=== PATIENT | female | born 1955 | race Caucasian/White ===

== ENCOUNTER → 2023-04-24 15:37 | Outpatient (REF) | payer MEDICARE, OTHER, SELFPAY ==
[2023-04-24 16:31] LABS: % Basophils 0.7 % (0-2); % Eosinophils 2.9 % (0-6); % Immature Granulocytes 0.4 % (0-0.5); % Lymphocytes 52.1 % (20.5-51.1); % Monocytes 4.8 % (1.7-9.3); % Neutrophils 39.1 % (42.2-75.2); Absolute Basophils 0.1 10^3/uL (0-0.2); Absolute Eosinophils 0.2 10^3/uL (0-0.7); Absolute Lymphocytes 3.9 10^3/uL (1.2-3.4); Absolute Monocytes 0.4 10^3/uL (0.1-0.6); Absolute Neutrophils 2.9 10^3/uL (1.4-6.5); Hemoglobin 12.9 g/dL (12.0-16.0); Mean Corp Hgb Conc. 33.1 g/dL (33.0-37.0); Mean Corpuscular Hgb 28.1 pg (27.0-31.0); Mean Platelet Volume 8.9 fL (7.4-10.4); Nucleated Red Blood Cells % 0 %; Platelet Count 276 10^3/uL (130-400); Red Blood Cell Count 4.59 10^6/uL (4.20-5.40); Red Cell Dist. Width 15.9 % (11.5-14.5); White Blood Cell Count 7.5 10^3/uL (4.8-10.8)
[2023-04-24 16:58] LABS: Blood Urea Nitrogen 33 mg/dl (7-17); Calcium 9.9 mg/dl (8.4-10.2); Carbon Dioxide 30 mmol/L (22-30); Chloride 98 mmol/L (98-107); Glucose 82 mg/dl (70-99); Potassium 4.5 mmol/L (3.5-5.1); Sodium 137 mmol/L (135-145); eGFR 49.61
== END ==
LOC: RCS 15:37
PROVIDERS: ATTENDING PHYSICIAN Orthopaedic Surgery; FAMILY PHYSICIAN Physician Assistant
DX: Z01.818 Encounter for other preprocedural examination (principal)
CPT/HCPCS: 36415; 80048; 85025; 93005

== ENCOUNTER → 2023-09-10 13:16 | Outpatient (REF) | payer MEDICARE, OTHER, SELFPAY ==
[2023-09-10 14:48] LABS: % Basophils 1.1 % (0-2); % Eosinophils 5.7 % (0-6); % Immature Granulocytes 0.2 % (0-0.5); % Lymphocytes 42.8 % (20.5-51.1); % Neutrophils 45.2 % (42.2-75.2); Absolute Basophils 0.1 10^3/uL (0-0.2); Absolute Eosinophils 0.3 10^3/uL (0-0.7); Absolute Lymphocytes 2.4 10^3/uL (1.2-3.4); Absolute Monocytes 0.3 10^3/uL (0.1-0.6); Absolute Neutrophils 2.6 10^3/uL (1.4-6.5); Hematocrit 41.3 % (37.0-47.0); Mean Corp Hgb Conc. 33.9 g/dL (33.0-37.0); Mean Corpuscular Hgb 29.1 pg (27.0-31.0); Mean Corpuscular Volume 85.9 fL (81.0-99.0); Mean Platelet Volume 9.5 fL (7.4-10.4); Nucleated Red Blood Cells % 0 %; Platelet Count 314 10^3/uL (130-400); Red Blood Cell Count 4.81 10^6/uL (4.20-5.40); Red Cell Dist. Width 15.5 % (11.5-14.5); White Blood Cell Count 5.6 10^3/uL (4.8-10.8)
[2023-09-10 15:20] LABS: ALT (SGPT) 17 U/L (0-35); AST (SGOT) 33 U/L (14-36); Albumin 4.9 g/dl (3.5-5.0); Alkaline Phosphatase 74 U/L (38-126); Blood Urea Nitrogen 30 mg/dl (7-17); Calcium 10.2 mg/dl (8.4-10.2); Carbon Dioxide 30 mmol/L (22-30); Chloride 99 mmol/L (98-107); Direct Bilirubin 0.3 mg/dl (0.0-0.4); Glucose 87 mg/dl (70-99); HDL Cholesterol 91 mg/dl; Iron 97 ug/dl (37-170); Potassium 4.5 mmol/L (3.5-5.1); Sodium 140 mmol/L (135-145); Total Bilirubin 0.7 mg/dl (0.2-1.3); Total Protein 7.7 g/dl (6.3-8.2); Triglyceride 189 mg/dl (10-149); Very Low Density Lipoprotein 37 mg/dl (0-30); eGFR 40.98
[2023-09-10 15:21] LABS: Uric Acid 7.7 mg/dl (2.5-6.2)
[2023-09-10 15:30] LABS: LDL Cholesterol, Calculated 261 mg/dl; Percent Saturation 24 % (20-50); Total Cholesterol 389 mg/dl (50-199); Total Iron Binding Capacity 398 ug/dl (265-497)
[2023-09-10 15:33] LABS: C-Reactive Protein < 5.00 mg/L (0.0-10.00)
[2023-09-10 16:01] LABS: Erythrocyte Sed Rate 20 mm/hour (0-20)
[2023-09-10 16:04] LABS: TSH Reflex To Free T4 2.33 uIU/ml (0.47-4.68)
== END ==
LOC: REG 13:16
PROVIDERS: ATTENDING PHYSICIAN Physician Assistant; REFERRING PHYSICIAN Physician Assistant Medical
DX: L29.9 Pruritus, unspecified (principal); E78.2 Mixed hyperlipidemia; R21 Rash and other nonspecific skin eruption; Z87.39 Personal history of other diseases of the musculoskeletal system and connective tissue; I10 Essential (primary) hypertension; G89.4 Chronic pain syndrome; I87.1 Compression of vein; F90.0 Attention-deficit hyperactivity disorder, predominantly inattentive type; R73.03 Prediabetes
CPT/HCPCS: 36415; 80053; 80061; 82248; 83540; 83550; 84443; 84550; 85025; 85652; 86140

== ENCOUNTER → 2023-09-18 16:45 | Outpatient (REF) | payer MEDICARE, OTHER, SELFPAY ==
[2023-09-18 17:38] LABS: Urine Albumin Trace (Neg - Trace); Urine Bilirubin 1+ (Negative); Urine Character Clear (Clear); Urine Color Yellow; Urine Glucose Negative (Negative); Urine Ketone Trace (Negative); Urine Leukocyte Trace (Negative); Urine Nitrite Negative (Negative); Urine Occult Blood Trace (Negative); Urine Urobilinogen Negative (Neg - 1+)
[2023-09-18 18:10] LABS: Urine Bacteria Few (Negative); Urine Mucus Moderate
== END ==
LOC: REG 16:45
PROVIDERS: ATTENDING PHYSICIAN Physician Assistant Medical; FAMILY PHYSICIAN Physician Assistant
DX: L29.9 Pruritus, unspecified (principal)
CPT/HCPCS: 81003; 81015

== ENCOUNTER 2024-03-30 07:38 | Inpatient (IN) | payer MEDICARE, OTHER, SELFPAY ==
[2024-03-08 11:18] LABS: Hematocrit 39.8 % (37.0-47.0); Hemoglobin 13.4 g/dL (12.0-16.0); Mean Corp Hgb Conc. 33.7 g/dL (33.0-37.0); Mean Corpuscular Hgb 30.1 pg (27.0-31.0); Mean Corpuscular Volume 89.4 fL (81.0-99.0); Mean Platelet Volume 9.2 fL (7.4-10.4); Platelet Count 281 10^3/uL (130-400); Red Blood Cell Count 4.45 10^6/uL (4.20-5.40); Red Cell Dist. Width 14.6 % (11.5-14.5); White Blood Cell Count 8.4 10^3/uL (4.8-10.8)
[2024-03-08 11:32] LABS: ALT (SGPT) 20 U/L (0-35); AST (SGOT) 38 U/L (14-36); Albumin 4.6 g/dl (3.5-5.0); Alkaline Phosphatase 53 U/L (38-126); Blood Urea Nitrogen 28 mg/dl (7-17); Calcium 9.7 mg/dl (8.4-10.2); Carbon Dioxide 33 mmol/L (22-30); Chloride 96 mmol/L (98-107); Glucose 112 mg/dl (70-99); Potassium 4.3 mmol/L (3.5-5.1); Sodium 139 mmol/L (135-145); Total Bilirubin 0.5 mg/dl (0.2-1.3); Total Protein 6.9 g/dl (6.3-8.2); eGFR 49.31
[2024-03-08 13:41] VITALS: BMI 24.3
[2024-03-08 13:54] LABS: Glycohemoglobin (HgbA1c) 5.6 % (4.0-5.6)
[2024-03-10 14:39] VITALS: BMI 24.3
--- NOTE | 2024-03-16 15:14 | W.PN.UPDATE ---
Update Note
Progress Note Update
R TKA 03/16/24
DVT ppx Xarelto-SCD
Pain management. The patient had intractable pain, prior
surgery, and has opioid tolerance. Have discussed pain management
plan. She will be placed on morphine sulfate extended release 15 mg
q.12 hours while inpatient and has been provided a prescription of
1 dose to take a.m. of surgery prior to leaving her house. We will
also include IV Decadron, Lyrica 150 mg t.i.d., as well as IV
lorazepam with oral Dilaudid for breakthrough pain.
PMH:
1. Osteoarthritis status post left total knee 2020, right total
shoulder 2013, left total shoulder 2016.
2. Hypertension.
3. Chronic pain.
4. PVCs.
5. May-Thurner syndrome, left lower extremity DVT 1998 s/p left
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
thrombectomy, IVC filter, and stenting.
6. CKD 3.
7. Gastroesophageal reflux disease.
8. Chronic constipation.
9. Peripheral neuropathy.
10. Meningioma status post craniotomy.
11. ADHD.
12. Depression.
13. Remote tobacco abuse.
--- NOTE | 2024-03-16 15:39 | W.DS.TRANS ---
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
-
Discharge Instructions:
Sleep Apnea Risk Low
Discharge Diagnosis/Procedures R TKA 03/16/24
Diet As tolerated
Activity With Walker
Driving Restrictions No driving
Bathing Restrictions OK to Shower
Instructions:
Stand-Alone Forms: SDS Total Hip and Knee D/C
Changes to Home Medications: Yes
Discharge Medications:
DC Medications w/original date entered in [facility]
alprazolam 0.5 mg tablet 0.5 mg PO DAILYPRN PRN anxiety 04/22/16
dextroamphetamine-amphetamine ER 30 mg 24hr capsule,extend release (Adderall XR) 2 tab PO DAILY 04/22/16
Apple Cider Vinegar 600 mg PO DAILY 03/07/24
Better Tumeric 1 dose PO DAILY 03/07/24
Brain Pack 1 dose PO DAILY 03/07/24
CoQ-10 1 dose PO DAILY 03/07/24
Curcumin 1 dose PO DAILY 03/07/24
Fish Oil 1 dose PO DAILY 03/07/24
Metamucil 1 dose PO DAILY 03/07/24
Multivitamin +[place] 3 1 dose PO DAILY 03/07/24
Smarter Greens 1 dose PO DAILY 03/07/24
Total Beets 1 dose PO DAILY 03/07/24
atorvastatin 10 mg tablet 10 mg PO DAILY 03/07/24
cyclobenzaprine 10 mg tablet 10 mg PO DAILY 03/07/24
fexofenadine 180 mg tablet 180 mg PO DAILY PRN congestion 03/07/24
karla extract 1 dose PO DAILY 03/07/24
hydroxyzine HCl 25 mg tablet 25 mg PO HS PRN itching 03/07/24
magnesium citrate 125 mg capsule 2 mg PO DAILY 03/07/24
triamterene 37.5 mg-hydrochlorothiazide 25 mg tablet 1 tab PO DAILY 03/07/24
vitamin D3-vitamin K2 1 dose PO DAILY 03/07/24
cefadroxil 500 mg capsule 500 mg PO BID infection prevention #14 caps 03/08/24
cyclobenzaprine 5 mg tablet 5 mg PO BID muscle pain/sleep #30 tabs 03/08/24
hydromorphone 4 mg tablet (Dilaudid) 4 mg PO Q4H PRN moderate-severe pain #30 tabs 03/08/24
morphine 15 mg tablet,extended release 15 mg PO ONCE KNEE REPLACMENT #1 tab 03/08/24
mupirocin 2 % topical ointment 1 applic topical BID infection prevention #1 tube 03/08/24
prednisone 10 mg tablet 40 mg (4 x 10 mg) PO TAPER inflammation #20 tabs 03/08/24
Saccharomyces boulardii 250 mg capsule (Florastor) 250 mg PO BID #1 cap 03/16/24
acetaminophen 325 mg tablet (Tylenol) 650 mg (2 x 325 mg) PO QID #1 tab 03/16/24
docusate sodium 100 mg capsule (Colace) 100 mg PO BID stool softner #1 cap 03/16/24
gabapentin 300 mg capsule 300 mg PO HS #0 caps 03/16/24
magnesium hydroxide 400 mg/5 mL oral suspension (Milk of Magnesia) 30 ml PO HS PRN Constipation #1 mL 03/16/24
rivaroxaban 20 mg tablet (Xarelto) 10 mg (1/2 x 20 mg) PO DAILY Blood clot prevention/tx #0 tabs 03/16/24
sennosides 8.6 mg tablet (senna) 2 tab PO BID #0 tabs 03/16/24
Home Medication Changes
cefadroxil 500 mg capsule 500 mg PO BID infection prevention #14 caps 03/08/24
cyclobenzaprine 5 mg tablet 5 mg PO BID muscle pain/sleep #30 tabs 03/08/24
hydromorphone 4 mg tablet (Dilaudid) 4 mg PO Q4H PRN moderate-severe pain #30 tabs 03/08/24
morphine 15 mg tablet,extended release 15 mg PO ONCE KNEE REPLACMENT #1 tab 03/08/24
mupirocin 2 % topical ointment 1 applic topical BID infection prevention #1 tube 03/08/24
prednisone 10 mg tablet 40 mg (4 x 10 mg) PO TAPER inflammation #20 tabs 03/08/24
Saccharomyces boulardii 250 mg capsule (Florastor) 250 mg PO BID #1 cap 03/16/24
acetaminophen 325 mg tablet (Tylenol) 650 mg (2 x 325 mg) PO QID #1 tab 03/16/24
docusate sodium 100 mg capsule (Colace) 100 mg PO BID stool softner #1 cap 03/16/24
gabapentin 300 mg capsule 300 mg PO HS #0 caps 03/16/24
magnesium hydroxide 400 mg/5 mL oral suspension (Milk of Magnesia) 30 ml PO HS PRN Constipation #1 mL 03/16/24
rivaroxaban 20 mg tablet (Xarelto) 10 mg (1/2 x 20 mg) PO DAILY Blood clot prevention/tx #0 tabs 03/16/24
sennosides 8.6 mg tablet (senna) 2 tab PO BID #0 tabs 03/16/24
Pending Results: No
[2024-03-30] VITALS (10 sets, daily range): BP systolic 118–159; BP diastolic 43–76; PULSE 85; BMI 24.3
[2024-03-30] MEDS: TYLENOL 650 MG PO ×4 (07:58→20:52)
[2024-03-30] MEDS: NORMOSOL-R/PLASMALYTE-A 1000 IV (07:58)
[2024-03-30] MEDS: CELEBREX 200 MG PO (07:58)
--- NOTE | 2024-03-30 08:01 | W.PN.UPDATE ---
Update Note
Progress Note Update
R knee OA s/p R TKA w/ Dr Barragan 03/30/24
- s/p L TKA w/ Dr Barragan 12/26/20, R JUDY, 2013, and L JUDY, 2016, by Dr. Kyaw Whiteside
DVT prophylaxis - Xarelto at modified dose, b/l venous foot pumps
- Will resume Xarelto 20 mg PO daily on POD 3 if remaining hemodynamically stable
HTN - + parameters - monitor BP
PVCs, asymptomatic - monitor on tele
May Thurner syndrome w/ LLE DVT, 1998, s/p L common iliac stent; and recurrent thrombosis, 2013, s/p mechanical thrombectomy, IVC filter, and stenting
- Resume Xarelto at modified dosing until POD 3
- Promoted frequent and early ambulation as tolerated during admission
- Plasma flow devices highly encouraged to be used upon d/c
CKD stage 3 - minimize nephrotoxins
GERD - add Protonix
Chronic constipation - add MOM to bowel regimen of Colace/Senna
Peripheral neuropathy - start Lyrica
Chronic pain syndrome requiring chronic narcotic use - continue multimodal pain approach
- Cautious w/ prescribing more narcotics - h/o drug seeking behavior
Meningioma s/p remote craniotomy
Nephrolithiasis
Ovarian cysts
ADHD
Depression
H/o remote tobacco abuse
The patient will greatly benefit from an oral abx upon discharge for continue joint prophylaxis. I will prescribe Cefadroxil 500 mg PO daily x1 week.
[2024-03-30] MEDS: DILAUDID 2 MG PO ×2 (11:02→14:13)
[2024-03-30] MEDS: DILAUDID 0.25 MG IV ×2 (11:29→12:38)
[2024-03-30] MEDS: LYRICA 150 MG PO ×3 (14:13→22:55)
[2024-03-30] MEDS: DELTASONE 40 MG PO (14:13)
[2024-03-30] MEDS: NSS 1000 IV (14:14)
[2024-03-30] MEDS: PROTONIX 40 MG PO (17:06)
[2024-03-30] MEDS: XARELTO 10 MG PO (18:14)
[2024-03-30] MEDS: ANCEF 5 IV (18:14)
[2024-03-30] MEDS: DILAUDID 4 MG PO ×2 (18:17→22:56)
--- NOTE | 2024-03-30 19:17 | PTCARENOTE ---
Pt arrived aprox 1330 from PACU. Admission and assessment done. Pts vital stable. Pt with pain to right knee, PO dilaudid given as now dose. TT sent to [facility] regarding pain medication. Pt stated she was told she could have IV pain meds
through the night. Belinda ordered a one time dose of dilaudid 2mg PO since it wasn't due at the time. Dressing to right knee CDI, ice applied. Pt to order lunch. at bedside. Pt instructed to ring for assistance
[2024-03-30] MEDS: MS CONTIN (EXTENDED RELEASE) 15 MG PO (20:51)
[2024-03-30] MEDS: SENOKOT 17.2 MG PO (20:51)
[2024-03-30] MEDS: BACTROBAN 2% OINTMENT 1 APPLIC NASAL (20:51)
[2024-03-30] MEDS: COLACE 100 MG PO (20:52)
[2024-03-30] MEDS: MILK OF MAGNESIA 30 ML PO (22:55)
[2024-03-31] MEDS: TYLENOL PO (01:00)
[2024-03-31] MEDS: ANCEF 5 IV (01:08)
[2024-03-31 03:05] VITALS: BP 141/74
[2024-03-31] MEDS: TYLENOL 650 MG PO ×4 (03:16→16:01)
[2024-03-31] MEDS: DILAUDID 4 MG PO ×3 (03:17→13:04)
[2024-03-31 07:30] VITALS: BP 129/68
--- NOTE | 2024-03-31 07:45 | W.PN.UPDATE ---
Update Note
Progress Note Update
pt sleeping, did not awaken her.
Pt has history of drug seeking behavior and it will be necessary to take an approach of being supportive that the pain of the surgery will be temporary and slowly improving over the next few days rather than escalating opiates. Also maximizing
nonopiate alternatives. She appears comfortable at present.
[2024-03-31] MEDS: BACTROBAN 2% OINTMENT 1 APPLIC NASAL (08:53)
[2024-03-31] MEDS: SENOKOT 17.2 MG PO (08:53)
[2024-03-31] MEDS: COLACE 100 MG PO (08:53)
[2024-03-31] MEDS: PROTONIX 40 MG PO (08:54)
[2024-03-31] MEDS: DELTASONE 40 MG PO (08:54)
[2024-03-31] MEDS: MS CONTIN (EXTENDED RELEASE) 15 MG PO (08:56)
[2024-03-31] MEDS: LYRICA 150 MG PO ×2 (09:01→16:01)
[2024-03-31] MEDS: LIDOCAINE 4% PATCH 2 PATCH TOPICAL (09:57)
[2024-03-31 10:33] VITALS: BP 140/72; PULSE 70; O2SAT 98
--- NOTE | 2024-03-31 11:00 | CM ---
Met with pt at bedside
Pt reports she lives with her in a 2 story home; 2 steps to enter, 12 steps to 2nd fl, + 1/2 bath on FF
Independent at baseline, no device to ambulate, + drives
DME - rolling walker, single point cane, raised toilet, toilet rails
SNF - denies past hx
HH - Has had in past - unable to recall agency
Has ride at discharge
PCP - Jah Jang
Pharm - [facility]
Pt reports she plans to stay on FF initially - has recliner and couch; powder room on FF
Plan - HH - discussed with pt - no preference
[facility] to [facility] for home care needs - RN,PT,OT
Given IMM
Plan - anticipate home with [facility]
[2024-03-31 11:57] VITALS: BP 151/67; PULSE 74
--- NOTE | 2024-03-31 12:11 | VNURNOTE ---
Home Health Liaison met with patient at bedside to discuss [facility] nurse/therapy, visits, schedule and homebound status. Patient is agreeable and understands that visits at home will be 2-3 x per week to assess and teach medical management.
[facility] brochure provided with contact information. Patient is aware that [facility] will contact them for start of care in 1-2 days after discharge from .
[facility] referral completed in [facility].
--- NOTE | 2024-03-31 12:18 | W.PN.ORTHO ---
Today's Communication / Plan
-
D/c today since clinically stable, did well w/ PT and OT.
Assessment
.
Distal Motor Intact: Yes
Dressing:
Scant old incisional bleeding.
Assessment:
R knee OA s/p R TKA w/ Dr Barragan 03/30/24
- s/p L TKA w/ Dr Barragan 12/26/20, R JUDY, 2013, and L JUDY, 2016, by Dr. Kyaw Whiteside
DVT prophylaxis - Xarelto at modified dose, b/l venous foot pumps
- Will resume Xarelto 20 mg PO daily on POD 3 since remaining hemodynamically stable
HTN - + parameters - BPs overall stable
PVCs, asymptomatic - rhythm stable on tele
May Thurner syndrome w/ LLE DVT, 1998, s/p L common iliac stent; and recurrent thrombosis, 2013, s/p mechanical thrombectomy, IVC filter, and stenting
- Resume Xarelto at modified dosing until POD 3
- Continue frequent and early ambulation as tolerated
- Plasma flow devices highly encouraged to be used upon d/c. Pt aware and will call [facility] to arrange
CKD stage 3 - minimize nephrotoxins
GERD - continue Protonix
Chronic constipation - added MOM to bowel regimen of Colace/Senna
- Upon d/c, will use daily Metamucil w/ Colace/Senna
Peripheral neuropathy - start Lyrica - Tapered Rx dosing provided
Chronic pain syndrome requiring chronic narcotic use - continue multimodal pain approach upon d/c
- Cautious w/ prescribing more narcotics - h/o drug seeking behavior
- Dilaudid working well in controlling pt's breakthrough pain as needed; however, I did note per PDMP that Percocet 10/325 mg was prescribed 03/[address] Jang (PCP). I did tell the patient that her Dilaudid Rx may not get filled given the recent
timing of Percocet script. Did advise she use Percocet in the meantime should the new Rx not get filled. She is aware to NOT take both Dilaudid and Percocet together
Meningioma s/p remote craniotomy
Nephrolithiasis
Ovarian cysts
ADHD
Depression
H/o remote tobacco abuse
The patient will greatly benefit from an oral abx upon discharge for continue joint prophylaxis. I will prescribe Cefadroxil 500 mg PO BID x1 week.
Plan
.
Surgery / Date: R TKA w/ Dr Barragan 03/30/24
DVT Prophylaxis: Other (Xarelto)
Activity:
Out of bed.
PT/OT
Discharge Plan: Home w/ VN
Subjective
.
.:
Patient examined earlier this morning.
Complaints of right knee pain; however, appears comfortable. Reportedly sleeps after Dilaudid given prn.
Denies any other new significant complaints.
Eager for potential d/c today.
Vital Signs and Labs
.
Vital Signs and Labs:
Lab Results
03/08/24 10:50
03/08/24 10:50
Temp Pulse Resp BP Pulse Ox
98 F 84 17 129/68 98
03/31/24 07:30 03/31/24 07:30 03/31/24 07:30 03/31/24 07:30 03/31/24 07:30
Physical Exam
-
HEENT: No pallor, cyanosis, or jaundice. Throat clear.
NECK: Supple. No JVD.
RESPIRATORY: Lungs clear to auscultation.
CVS: S1, S2 normal. RRR.�
ABDOMEN: Soft, non-tender. No distension.
EXTREMITIES: Minimal post-surgical R knee edema. Strength equal, no calf pain with palpation/dorsiflexion. Calves soft.
CONTENT ANALYST: AOx3. No focal deficits. plastic battery assembler grossly intact
--- NOTE | 2024-03-31 12:41 | W.DS.TRANS ---
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
-
Discharge Instructions:
Sleep Apnea Risk Low
Discharge Diagnosis/Procedures R knee OA s/p R TKA 03/30/24
Diet Other diet
Additional Diets Diabetic carb controlled x1 week for wound
healing/infection prevention
Activity With Walker,As tolerated
Driving Restrictions Not until seen by your Dr
Bathing Restrictions OK to Shower
Other Services VN,PT
Wound Care Dressing to be removed 1 week post-surgery
Instructions:
Stand-Alone Forms: Total Hip/Knee Replacement D/C
Changes to Home Medications: Yes
Discharge Medications:
DC Medications w/original date entered in [facility]
dextroamphetamine-amphetamine ER 30 mg 24hr capsule,extend release (Adderall XR) 2 tab PO DAILY 04/22/16
Apple Cider Vinegar 600 mg PO DAILY 03/07/24
Better Tumeric 1 dose PO DAILY 03/07/24
Brain Pack 1 dose PO DAILY 03/07/24
CoQ-10 1 dose PO DAILY 03/07/24
Curcumin 1 dose PO DAILY 03/07/24
Fish Oil 1 dose PO DAILY 03/07/24
Metamucil 1 dose PO DAILY 03/07/24
Multivitamin +[place] 3 1 dose PO DAILY 03/07/24
Smarter Greens 1 dose PO DAILY 03/07/24
Total Beets 1 dose PO DAILY 03/07/24
atorvastatin 10 mg tablet 10 mg PO DAILY 03/07/24
fexofenadine 180 mg tablet 180 mg PO DAILY PRN congestion 03/07/24
karla extract 1 dose PO DAILY 03/07/24
hydroxyzine HCl 25 mg tablet 25 mg PO HS PRN itching 03/07/24
magnesium citrate 125 mg capsule 2 mg PO DAILY 03/07/24
vitamin D3-vitamin K2 1 dose PO DAILY 03/07/24
cefadroxil 500 mg capsule 500 mg PO BID infection prevention #14 caps 03/08/24
mupirocin 2 % topical ointment 1 applic topical BID infection prevention #1 tube 03/08/24
prednisone 10 mg tablet 40 mg (4 x 10 mg) PO TAPER inflammation #20 tabs 03/08/24
Saccharomyces boulardii 250 mg capsule (Florastor) 250 mg PO BID #1 cap 03/16/24
docusate sodium 100 mg capsule (Colace) 100 mg PO BID stool softner #1 cap 03/16/24
sennosides 8.6 mg tablet (senna) 2 tab PO BID #0 tabs 03/16/24
acetaminophen 325 mg tablet 650 mg (2 x 325 mg) PO Q4HWA #60 tabs 03/31/24
hydromorphone 2 mg tablet 2 - 4 mg (1 - 2 x 2 mg) PO Q6H PRN moderate-severe breakthrough pain #30 tabs 03/31/24
lidocaine 4 % topical patch 2 patch topical DAILY #30 ea 03/31/24
morphine 15 mg tablet,extended release 15 mg PO Q12 #15 tabs 03/31/24
ondansetron HCl 4 mg tablet 4 mg PO Q6H PRN nausea and vomiting #30 tabs 03/31/24
pantoprazole 40 mg tablet,delayed release 40 mg PO DAILY #30 tabs 03/31/24
pregabalin 150 mg capsule 150 mg PO TID neuropathy #18 caps 03/31/24
rivaroxaban 10 mg tablet (Xarelto) 10 mg PO QPM #2 tabs 03/31/24
rivaroxaban 20 mg tablet (Xarelto) 20 mg PO QPM #1 tab 03/31/24
triamterene 37.5 mg-hydrochlorothiazide 25 mg tablet 1 tab PO DAILY #1 tab 03/31/24
Home Medication Changes
cefadroxil 500 mg capsule 500 mg PO BID infection prevention #14 caps 03/08/24
prednisone 10 mg tablet 40 mg (4 x 10 mg) PO TAPER inflammation #20 tabs 03/08/24
Saccharomyces boulardii 250 mg capsule (Florastor) 250 mg PO BID #1 cap 03/16/24
docusate sodium 100 mg capsule (Colace) 100 mg PO BID stool softner #1 cap 03/16/24
sennosides 8.6 mg tablet (senna) 2 tab PO BID #0 tabs 03/16/24
acetaminophen 325 mg tablet 650 mg (2 x 325 mg) PO Q4HWA #60 tabs 03/31/24
hydromorphone 2 mg tablet 2 - 4 mg (1 - 2 x 2 mg) PO Q6H PRN moderate-severe breakthrough pain #30 tabs 03/31/24
lidocaine 4 % topical patch 2 patch topical DAILY #30 ea 03/31/24
morphine 15 mg tablet,extended release 15 mg PO Q12 #15 tabs 03/31/24
ondansetron HCl 4 mg tablet 4 mg PO Q6H PRN nausea and vomiting #30 tabs 03/31/24
pantoprazole 40 mg tablet,delayed release 40 mg PO DAILY #30 tabs 03/31/24
pregabalin 150 mg capsule 150 mg PO TID neuropathy #18 caps 03/31/24
rivaroxaban 10 mg tablet (Xarelto) 10 mg PO QPM #2 tabs 03/31/24
Pending Results: No
[2024-03-31] MEDS: FLUAD (65 yr+) 2024-2025 FORMULA 0.5 ML IM (13:05)
[2024-03-31] MEDS: PREVNAR 20 0.5 ML IM (13:07)
[2024-03-31 13:37] VITALS: BP 148/70
== END 2024-03-31 16:15 | disposition home health service (06) | DRG 470 ==
LOC: 2 SOUTH 07:38
PROVIDERS: ADMITTING PHYSICIAN Orthopaedic Surgery; FAMILY PHYSICIAN Internal Medicine
PROC: 0SRC0J9 Replacement of Right Knee Joint with Synthetic Substitute, Cemented, Open Approach (ICD-10-PCS; 2024-03-30)
PROC: 3E02340 Introduction of Influenza Vaccine into Muscle, Percutaneous Approach (ICD-10-PCS; 2024-03-31)
DX: M17.11 Unilateral primary osteoarthritis, right knee (principal); I87.1 Compression of vein; N18.30 Chronic kidney disease, stage 3 unspecified; I12.9 Hypertensive chronic kidney disease with stage 1 through stage 4 chronic kidney disease, or unspecified chronic kidney disease; I49.3 Ventricular premature depolarization; K21.9 Gastro-esophageal reflux disease without esophagitis; K59.09 Other constipation; G62.9 Polyneuropathy, unspecified; Z85.841 Personal history of malignant neoplasm of brain; F90.9 Attention-deficit hyperactivity disorder, unspecified type; F32.A Depression, unspecified; Z87.891 Personal history of nicotine dependence; Z96.612 Presence of left artificial shoulder joint; Z96.611 Presence of right artificial shoulder joint; Z96.652 Presence of left artificial knee joint; Z86.718 Personal history of other venous thrombosis and embolism; G89.4 Chronic pain syndrome; Z79.891 Long term (current) use of opiate analgesic; Z79.01 Long term (current) use of anticoagulants; Z90.710 Acquired absence of both cervix and uterus; Z23 Encounter for immunization
CPT/HCPCS: 36415; 73560; 80053; 83036; 85027; 87070; 90662; 90677; 93005; 97110; 97116; 97162; 97166; 97535; G0008; G0009

== ENCOUNTER → 2024-12-09 10:36 | Outpatient (REF) | payer MEDICARE, OTHER, SELFPAY ==
[2024-12-09 11:43] LABS: Hematocrit 42.8 % (37.0-47.0); Hemoglobin 14.2 g/dL (12.0-16.0); Mean Corp Hgb Conc. 33.2 g/dL (33.0-37.0); Mean Corpuscular Volume 91.8 fL (81.0-99.0); Nucleated Red Blood Cells % 0 %; Platelet Count 267 10^3/uL (130-400); Red Cell Dist. Width 13.9 % (11.5-14.5)
[2024-12-09 12:02] LABS: Glycohemoglobin (HgbA1c) 5.6 % (4.0-5.6)
[2024-12-09 13:37] LABS: Vitamin D, 25-OH*** 50.0 ng/mL (30-80)
[2024-12-09 14:08] LABS: ALT (SGPT) 18 U/L (0-35); AST (SGOT) 29 U/L (14-36); Albumin 4.6 g/dl (3.5-5.0); Alkaline Phosphatase 55 U/L (38-126); Blood Urea Nitrogen 30 mg/dl (7-17); Calcium 9.3 mg/dl (8.4-10.2); Carbon Dioxide 33 mmol/L (22-30); Chloride 99 mmol/L (98-107); Glucose 107 mg/dl (70-99); HDL Cholesterol 95 mg/dl; LDL Cholesterol, Calculated 76 mg/dl; Potassium 4.9 mmol/L (3.5-5.1); Sodium 140 mmol/L (135-145); Total Protein 7.2 g/dl (6.3-8.2); Very Low Density Lipoprotein 32 mg/dl (0-30); eGFR 49.00
== END ==
LOC: REG 10:36
PROVIDERS: ATTENDING PHYSICIAN Physician Assistant
DX: E55.9 Vitamin D deficiency, unspecified (principal); I10 Essential (primary) hypertension; E78.2 Mixed hyperlipidemia; I87.1 Compression of vein; R73.03 Prediabetes; Z13.0 Encounter for screening for diseases of the blood and blood-forming organs and certain disorders involving the immune mechanism
CPT/HCPCS: 36415; 80053; 80061; 82306; 83036; 85025